=== PATIENT | male | born 1945 | race Caucasian/White ===

== ENCOUNTER 2021-08-26 10:43 | Outpatient (CLI) | payer MEDICARE ==
[2021-08-26 20:27] LABS: SARS-CoV-2 PCR by NAA Not Detected (NotDetected)
== END 2021-08-26 10:44 | disposition home or self-care (01) ==
LOC: CSHLAB 10:43
PROVIDERS: ATTEND Internal Medicine Gastroenterology
DX: Z01.812 Encounter for preprocedural laboratory examination (principal); Z20.822 Contact with and (suspected) exposure to COVID-19; K63.5 Polyp of colon
CPT/HCPCS: U0003; U0005

== ENCOUNTER 2021-08-29 05:46 | Day surgery (SDC) | payer MEDICARE ==
[2021-08-27 13:18] VITALS: BMI 27.3
[2021-08-29] MEDS ORDERED: Lidocaine 1% MPF 2 ML VIAL ONE (06:50)
[2021-08-29] MEDS ORDERED: PROPOFOL 40 ML ONE (07:19)
[2021-08-29] MEDS ORDERED: Lidocaine 1% PF 5 ML VIAL ONE (07:19)
[2021-08-29] MEDS ORDERED: Lidocaine 2% MPF 10 ML AMP (For Epidural Use) ONE (07:20)
[2021-08-29] MEDS ORDERED: Phenylephrine 10 MG/ML VIAL ONE (07:22)
[2021-08-29] MEDS ORDERED: PROPOFOL 20 ML ONE (08:11)
== END 2021-08-29 08:51 | disposition home or self-care (01) ==
LOC: CSHSDC 05:46
PROVIDERS: ATTEND Internal Medicine Gastroenterology
PROC: 0DBN8ZZ Excision of Sigmoid Colon, Via Natural or Artificial Opening Endoscopic (ICD-10-PCS; principal; 2021-08-29)
DX: Z12.11 Encounter for screening for malignant neoplasm of colon (principal); K63.5 Polyp of colon; K57.30 Diverticulosis of large intestine without perforation or abscess without bleeding; K64.9 Unspecified hemorrhoids; E78.5 Hyperlipidemia, unspecified
CPT/HCPCS: 88305; J2370; J2704